=== PATIENT | female | born 2000 | race Hispanic/Latino ===

== ENCOUNTER 2022-01-28 10:48 | Outpatient (CLI) | payer OTHER ==
[2022-01-28 15:10] LABS: Hemoglobin 12.6 g/dL (12.0-15.5); Mean Corpuscular HGB CONC 34.6 g/dL (32.0-36.0); Mean Corpuscular Hemoglobin 31.4 pg (27.0-33.0); Mean Corpuscular Volume 90.8 fl (81.6-98.3); Platelet Count 191 10x3/uL (150-450); RBC Distribution Width 12.9 % (11.5-14.5); Red Blood Cell (RBC) Count 4.01 10x6/uL (3.90-5.03); White Blood Cell (WBC) Count 7.2 10x3/uL (3.5-10.5)
[2022-01-28 15:37] LABS: Syphilis Antibody Nonreactive (Nonreactive); Syphilis Antibody Index 0.04 S/CO (<1.00 Non-Reactive)
[2022-01-28 15:38] LABS: Hep B Surf Ag Non-Reactive S/CO (NonReactive)
== END 2022-01-28 10:49 | disposition home or self-care (01) ==
LOC: CSHLAB 10:48
PROVIDERS: ATTEND Family Medicine
DX: Z01.812 Encounter for preprocedural laboratory examination (principal); Z20.822 Contact with and (suspected) exposure to COVID-19; O34.219 Maternal care for unspecified type scar from previous cesarean delivery
CPT/HCPCS: 85027; 86780; 86900; 86901; 87340; U0003; U0005

== ENCOUNTER 2022-02-01 15:19 | Inpatient (IN) | payer MEDICAID, OTHER, SELFPAY | END 2022-02-01 16:50 | disposition home or self-care (01) | DRG 833 | LOC: CSHLD 15:19 | PROVIDERS: ADMIT Family Medicine; ATTEND Family Medicine | DX: O44.43 Low lying placenta NOS or without hemorrhage, third trimester (principal); O34.211 Maternal care for low transverse scar from previous cesarean delivery; Z3A.36 36 weeks gestation of pregnancy ==

== ENCOUNTER 2022-02-03 11:49 | Inpatient (IN) | payer MEDICAID, OTHER, SELFPAY ==
[2022-02-03 12:27] VITALS: BMI 30.2
[2022-02-03] MEDS ORDERED: Ondansetron PF 4 MG/2 ML Vial IVP PRN ×3 (13:17→18:41)
[2022-02-03] MEDS ORDERED: hydrALAZINE 20 MG/ML VIAL SLOW IVP PRN ×2 (13:17→18:41)
[2022-02-03] MEDS ORDERED: Famotidine/PF 20 mg/2ml Vial SLOW IVP PRN (13:17)
[2022-02-03] MEDS ORDERED: Promethazine HCl 25 MG/ML VIAL IM PRN ×3 (13:17→18:41)
[2022-02-03] MEDS ORDERED: Bicitra 30 ML UDCUP PO PRN (13:17)
[2022-02-03] MEDS ORDERED: ceFAZolin 2 GM/Dextrose 50 ML 2 GM in Premix Bag 1 BAG IVPB SCH (13:30)
[2022-02-03] MEDS ORDERED: Lactated Ringer's 1,000 ML IV SCH (13:30)
[2022-02-03] MEDS ORDERED: Oxytocin 10 UNITS/ML VIAL ONE (14:02)
[2022-02-03] MEDS ORDERED: Morphine PF 10 MG/10 ML VIAL ONE (14:03)
[2022-02-03] MEDS ORDERED: Phenylephrine 40 MG/NS 250 ML 250 ML ONE (14:03)
[2022-02-03] MEDS ORDERED: Glycopyrrolate 0.2 MG/ML 5 ML SYRINGE ONE (14:49)
[2022-02-03] MEDS ORDERED: ePHEDrine Sulfate 50 MG/10 ML VIAL ONE (14:49)
[2022-02-03] MEDS ORDERED: Ondansetron PF 4 MG/2 ML Vial ONE ×2 (15:31→15:33)
[2022-02-03] MEDS ORDERED: Ondansetron HCl/PF 4 MG/2 ML Vial IVP PRN (15:45)
[2022-02-03] MEDS ORDERED: diphenhydrAMINE 50 MG/ML VIAL IVP PRN (15:45)
[2022-02-03] MEDS ORDERED: Fentanyl 100 MCG/2 ML VIAL SLOW IVP PRN (15:45)
[2022-02-03] MEDS ORDERED: Communication Order-Pharmacy FS SCH (15:45)
[2022-02-03] MEDS ORDERED: Meperidine HCl/PF 25 MG/ML VIAL SLOW IVP PRN (15:45)
[2022-02-03] MEDS ORDERED: Naloxone HCl 0.4 mg/ml Vial IV PRN (15:45)
[2022-02-03] MEDS ORDERED: Moisturizing Cream (Eucerin) 113 GM JAR TOP PRN (15:45)
[2022-02-03] MEDS ORDERED: Promethazine HCl 25 MG SUPP PR PRN (15:45)
[2022-02-03] MEDS ORDERED: Naloxone HCl 0.4 mg/ml Vial IVP PRN ×2 (15:45)
[2022-02-03] MEDS ORDERED: Meperidine HCl/PF 25 MG/ML VIAL ONE (17:29)
[2022-02-03] MEDS ORDERED: Simethicone Chewable 80 MG TAB PO PRN (18:41)
[2022-02-03] MEDS ORDERED: Lanolin Ointment 7 GM TUBE TOP PRN (18:41)
[2022-02-03] MEDS ORDERED: Bisacodyl 10 MG SUPP PR PRN (18:41)
[2022-02-03] MEDS ORDERED: Boostrix 0.5 ML (Tdap) VIAL IM ONE (18:41)
[2022-02-03] MEDS ORDERED: HYDROcodone/Acetaminophen 5/325 mg Tablet PO PRN ×2 (18:41)
[2022-02-03 18:44] LABS: Hemoglobin 13.9 g/dL (12.0-15.5); Mean Corpuscular HGB CONC 34.3 g/dL (32.0-36.0); Mean Corpuscular Hemoglobin 31.7 pg (27.0-33.0); Mean Corpuscular Volume 92.3 fl (81.6-98.3); Mean Platelet Volume 11.9 fl (7.4-10.4); Platelet Count 168 10x3/uL (150-450); RBC Distribution Width 13.1 % (11.5-14.5); Red Blood Cell (RBC) Count 4.39 10x6/uL (3.90-5.03); White Blood Cell (WBC) Count 10.9 10x3/uL (3.5-10.5)
[2022-02-03] MEDS ORDERED: NS w/ Oxytocin 30 units 500 ML ONE (18:50)
[2022-02-03] MEDS: Ketorolac Tromethamine 30 MG/ML VIAL IVP SCH ×2 (18:51→23:32)
[2022-02-03 19:18] LABS: Hep B Surf Ag Non-Reactive S/CO (NonReactive); Syphilis Antibody Nonreactive (Nonreactive); Syphilis Antibody Index 0.04 S/CO (<1.00 Non-Reactive)
[2022-02-03] MEDS ORDERED: Ketorolac Tromethamine 30 MG/ML VIAL IVP SCH (20:45)
[2022-02-03] MEDS: Docusate 100 MG CAP PO SCH (20:47)
[2022-02-03] MEDS: Ferrous Sulfate 325 MG TAB PO SCH (20:47)
[2022-02-03] MEDS: diphenhydrAMINE 25 MG CAP PO PRN (23:32)
[2022-02-04] MEDS ORDERED: Meperidine HCl/PF 25 MG/ML VIAL IM PRN (03:45)
[2022-02-04 04:27] LABS: Hemoglobin 11.1 g/dL (12.0-15.5); Mean Corpuscular HGB CONC 35.2 g/dL (32.0-36.0); Mean Corpuscular Hemoglobin 31.3 pg (27.0-33.0); Mean Corpuscular Volume 88.7 fl (81.6-98.3); Mean Platelet Volume 11.5 fl (7.4-10.4); Platelet Count 150 10x3/uL (150-450); RBC Distribution Width 13.2 % (11.5-14.5); Red Blood Cell (RBC) Count 3.55 10x6/uL (3.90-5.03); White Blood Cell (WBC) Count 8.7 10x3/uL (3.5-10.5)
[2022-02-04] MEDS: Ketorolac Tromethamine 30 MG/ML VIAL IVP SCH ×2 (06:03→11:38)
[2022-02-04] MEDS: HYDROcodone/Acetaminophen 5/325 mg Tablet PO PRN ×3 (07:31→15:29)
[2022-02-04] MEDS: Prenatal Vitamin 1 TAB PO SCH (07:31)
[2022-02-04] MEDS: Docusate 100 MG CAP PO SCH ×2 (07:31→21:13)
[2022-02-04] MEDS: diphenhydrAMINE 25 MG CAP PO PRN (11:36)
[2022-02-04] MEDS: Ferrous Sulfate 325 MG TAB PO SCH ×2 (11:37→21:11)
[2022-02-04] MEDS: Ibuprofen 800 MG TAB PO SCH ×2 (13:35→21:12)
[2022-02-05] MEDS: HYDROcodone/Acetaminophen 5/325 mg Tablet PO PRN ×2 (04:07→12:24)
[2022-02-05] MEDS: Ibuprofen 800 MG TAB PO SCH ×3 (06:04→21:24)
[2022-02-05] MEDS: Docusate 100 MG CAP PO SCH ×2 (09:08→21:24)
[2022-02-05] MEDS: Prenatal Vitamin 1 TAB PO SCH (09:08)
[2022-02-05] MEDS: Ferrous Sulfate 325 MG TAB PO SCH ×2 (09:09→23:20)
[2022-02-06] MEDS: Ibuprofen 800 MG TAB PO SCH ×2 (05:14→14:39)
[2022-02-06] MEDS: HYDROcodone/Acetaminophen 5/325 mg Tablet PO PRN ×3 (05:15→16:40)
[2022-02-06] MEDS: Ferrous Sulfate 325 MG TAB PO SCH (09:05)
[2022-02-06] MEDS: Prenatal Vitamin 1 TAB PO SCH (09:06)
[2022-02-06] MEDS: Docusate 100 MG CAP PO SCH (09:06)
[2022-02-06 09:53] VITALS: BP 98/55; TEMP 98.6
== END 2022-02-06 17:15 | disposition home or self-care (01) | DRG 787 ==
LOC: CSHLD 11:49 → CSHPP 18:10
PROVIDERS: ADMIT Family Medicine; ATTEND Family Medicine
PROC: 10D00Z1 Extraction of Products of Conception, Low, Open Approach (ICD-10-PCS; principal; 2022-02-03)
DX: O34.211 Maternal care for low transverse scar from previous cesarean delivery (principal); O44.43 Low lying placenta NOS or without hemorrhage, third trimester; Z3A.36 36 weeks gestation of pregnancy; Z37.0 Single live birth
CPT/HCPCS: 36415; 36430; 51702; 85027; 86780; 86850; 86900; 86901; 87340; J1885; J2175; J2274; J2405; J2590; S0028